=== PATIENT | male | born 1995 | race Caucasian/White ===

== ENCOUNTER 2018-12-30 11:21 | Emergency (ER) | payer BC ==
--- NOTE | 2018-12-30 12:03 | RAD ---
LEFT KNEE 4 VIEWS: Date: 12/30/18 HISTORY: Left knee pain. COMPARISON: Radiograph from 2014. FINDINGS: No acute fracture or malalignment. No joint effusion. Soft tissues are unremarkable. IMPRESSION: Normal exam. POS: [facility]
== END 2018-12-30 12:14 | disposition home or self-care (01) ==
LOC: ERS 11:21
DX: M25.562 Pain in left knee (principal); F90.9 Attention-deficit hyperactivity disorder, unspecified type
CPT/HCPCS: 99281

== ENCOUNTER 2021-10-04 12:07 | Observation (INO) | payer BC, SELFPAY ==
[~2021-10-04 12:07] MED LIST: Iopamidol-370 76% 500 ML 1 ML ONE
[2021-10-04] MEDS ORDERED: Ketorolac Tromethamine 30 MG/ML VIAL ONE (13:34)
[2021-10-04 13:36] LABS: #Basophils 0.1 thou/uL (0.0-0.2); #Monocytes 0.8 thou/uL (0.11-0.59); #Neutrophils 10.1 thou/uL (1.40-6.50); %Basophils 0.5 % (0.0-1.0); %Eosinophils 0.3 % (0.0-10.0); %Lymphocytes 15.2 % (21.0-51.0); %Monocytes 6.1 % (0.0-10.0); %Neutrophils 77.9 % (42.0-75.0); Hemoglobin 14.3 g/dL (14.0-18.0); Mean Corpuscular HGB CONC 33.3 g/dL (32.0-36.0); Mean Corpuscular Hemoglobin 31.3 pg (27.0-31.0); Mean Platelet Volume 6.5 fL (7.4-10.4); Platelet Count 277 thou/uL (130-400); RBC Distribution Width 11.9 % (11.5-14.5); Red Blood Cell (RBC) Count 4.57 mill/uL (4.70-6.10); White Blood Cell (WBC) Count 12.9 thou/uL (4.8-10.8)
[2021-10-04] MEDS ORDERED: Chlorhexidine Gluconate 15 ML UDCUP SSP SCH (13:45)
[2021-10-04 13:59] LABS: ALT (SGPT) 15 U/L (8-55); AST (SGOT) 13 U/L (5-34); Albumin 4.3 g/dL (3.5-5.0); Alkaline Phosphatase 65 U/L (40-110); Anion Gap 12 mmol/L (10-20); BUN (Urea Nitrogen) 10 mg/dL (8.9-20.6); Bilirubin, Total 0.6 mg/dL (0.2-1.2); Calc. Creatinine Clearance 0 mL/min (70-130); Carbon Dioxide 24 mmol/L (22-29); Chloride 109 mmol/L (98-107); Glucose 107 mg/dL (70-105); Potassium 4.4 mmol/L (3.5-5.1); Protein, Total 7.3 g/dL (6.0-8.3); Sodium 141 mmol/L (136-145)
[2021-10-04] MEDS ORDERED: Morphine 4 MG/ML VIAL ONE (16:57)
[2021-10-04] MEDS ORDERED: Dexamethasone 4 mg/ml Vial ONE (17:46)
[2021-10-04] MEDS ORDERED: Nicotine 14 MG PATCH TD PRN (18:24)
[2021-10-04] MEDS ORDERED: Ondansetron PF 4 MG/2 ML Vial IVP PRN (18:24)
[2021-10-04] MEDS ORDERED: Acetaminophen 325 MG TAB PO PRN (18:24)
[2021-10-04] MEDS ORDERED: Ondansetron ODT 4 MG TAB PO PRN (18:24)
[2021-10-04] MEDS ORDERED: traMADol HCl 50 MG TAB PO PRN (18:27)
[2021-10-04] MEDS ORDERED: Ampicillin/Sulbactam 3 GM in Sodium Chloride 0.9% 100 ML IVPB SCH (18:30)
[2021-10-04] MEDS ORDERED: Morphine 4 MG/ML VIAL SLOW IVP PRN (18:47)
[2021-10-04] MEDS ORDERED: Tranexamic Acid 1,000 MG/10 ML VIAL ONE (18:53)
[2021-10-04] MEDS ORDERED: Acetaminophen 325 MG TAB ONE (19:29)
[2021-10-04 20:33] VITALS: BMI 17.7
[2021-10-04] MEDS: Ketorolac Tromethamine 30 MG/ML VIAL IVP PRN (21:06)
[2021-10-04] MEDS: Famotidine 20 MG TAB PO SCH (21:06)
[2021-10-04] MEDS: Chlorhexidine Gluconate 15 ML UDCUP SSP SCH (21:06)
[2021-10-04] MEDS: Sodium Chloride 0.9% 1,000 ML IV SCH (21:17)
[2021-10-05] MEDS: Ampicillin/Sulbactam 3 GM in Sodium Chloride 0.9% 100 ML IVPB SCH ×3 (01:18→12:14)
[2021-10-05 04:35] LABS: SARS-CoV-2 NAA Rapid Test Not Detected (NotDetected)
[2021-10-05 05:36] LABS: #Lymphocytes 1.5 thou/uL (1.20-3.40); #Monocytes 0.8 thou/uL (0.11-0.59); #Neutrophils 9.4 thou/uL (1.40-6.50); %Basophils 0.2 % (0.0-1.0); %Eosinophils 0.1 % (0.0-10.0); %Lymphocytes 12.9 % (21.0-51.0); %Monocytes 6.8 % (0.0-10.0); Hemoglobin 13.3 g/dL (14.0-18.0); Mean Corpuscular HGB CONC 32.8 g/dL (32.0-36.0); Mean Corpuscular Volume 94.3 fL (78.0-98.0); Mean Platelet Volume 6.5 fL (7.4-10.4); Platelet Count 277 thou/uL (130-400); RBC Distribution Width 11.9 % (11.5-14.5); Red Blood Cell (RBC) Count 4.31 mill/uL (4.70-6.10); White Blood Cell (WBC) Count 11.8 thou/uL (4.8-10.8)
[2021-10-05 06:01] LABS: Anion Gap 12 mmol/L (10-20); BUN (Urea Nitrogen) 10 mg/dL (8.9-20.6); Calc. Creatinine Clearance 123 mL/min (70-130); Calcium 8.8 mg/dL (7.8-10.44); Carbon Dioxide 22 mmol/L (22-29); Chloride 108 mmol/L (98-107); Glucose 110 mg/dL (70-105); Potassium 4.1 mmol/L (3.5-5.1); Sodium 138 mmol/L (136-145)
[2021-10-05] MEDS: Ketorolac Tromethamine 30 MG/ML VIAL IVP PRN (06:55)
[2021-10-05] MEDS: Chlorhexidine Gluconate 15 ML UDCUP SSP SCH (09:07)
[2021-10-05] MEDS: Famotidine 20 MG TAB PO SCH (09:11)
[2021-10-05] MEDS: Sodium Chloride 0.9% 1,000 ML IV SCH (09:11)
[2021-10-05] MEDS ORDERED: Chlorhexidine Gluconate 15 ML UDCUP SSP ONE (10:44)
[2021-10-05] MEDS ORDERED: Lidocaine 1% w/Epinephrine 1:100K 20 ML VIAL ONE (10:44)
[2021-10-05] MEDS ORDERED: Fentanyl 100 MCG/2 ML VIAL ONE ×2 (10:53→11:53)
[2021-10-05] MEDS ORDERED: Ketorolac Tromethamine 30 MG/ML VIAL ONE (11:02)
[2021-10-05] MEDS ORDERED: Dexamethasone 20 MG/5 ML VIAL ONE (11:02)
[2021-10-05] MEDS ORDERED: Ondansetron PF 4 MG/2 ML Vial ONE (11:02)
[2021-10-05] MEDS ORDERED: PROPOFOL 200 MG/20 ML VIAL ONE (11:02)
[2021-10-05] MEDS ORDERED: Rocuronium Bromide 10 MG/ML (10ML VIAL) ONE (11:02)
[2021-10-05] MEDS ORDERED: Lidocaine 1% PF 5 ML VIAL ONE (11:02)
[2021-10-05] MEDS ORDERED: SUGAMMADEX SODIUM 200 MG/2 ML VIAL ONE (11:16)
[2021-10-05] MEDS ORDERED: Promethazine HCl 25 MG/ML VIAL IVPB PRN (11:35)
[2021-10-05] MEDS ORDERED: Ondansetron HCl/PF 4 MG/2 ML Vial IVP PRN (11:35)
[2021-10-05] MEDS ORDERED: PACU-Morphine 4MG/ML VIAL SLOW IVP PRN (11:35)
[2021-10-05] MEDS ORDERED: HYDROmorphone 2 MG/ML VIAL SLOW IVP PRN (11:35)
[2021-10-05] MEDS ORDERED: Promethazine HCl 25 MG/ML VIAL IM PRN (11:35)
[2021-10-05 16:40] VITALS: BP 116/76; TEMP 98.1
[2021-10-06] MEDS ORDERED: FLU VACC QS2021-22(6MOS UP)/PF 60 MCG/0.5 ML SYRINGE IM ONE (09:00)
== END 2021-10-05 16:15 | disposition home or self-care (01) ==
LOC: ERS 12:07 → SURG B 18:00
PROVIDERS: ADMIT Family Medicine; ATTEND Family Medicine
PROC: 0CDWXZ0 Extraction of Upper Tooth, Single, External Approach (ICD-10-PCS; principal; 2021-10-05)
PROC: 0W933ZZ Drainage of Oral Cavity and Throat, Percutaneous Approach (ICD-10-PCS; 2021-10-05)
DX: K04.7 Periapical abscess without sinus (principal); K12.2 Cellulitis and abscess of mouth; K02.9 Dental caries, unspecified; D72.829 Elevated white blood cell count, unspecified; R73.9 Hyperglycemia, unspecified; F90.9 Attention-deficit hyperactivity disorder, unspecified type; F17.210 Nicotine dependence, cigarettes, uncomplicated
CPT/HCPCS: 36415; 70487; 80048; 80053; 85025; 96365; 96366; 96374; 96375; 96376; G0378; J0295; J1100; J1885; J2270; J2405; J2704; J3010; J3490; J7050; Q9967; U0002